=== PATIENT | female | born 1955 | race Hispanic/Latino ===

== ENCOUNTER 2017-07-19 18:24 | Emergency (ER) | payer OTHER ==
--- NOTE | 2017-07-19 19:55 | RAD REPORT ---
EXAM DESCRIPTION: RAD - Hand Right 3 View - 07/19/2017 7:45 pm CLINICAL HISTORY: Soft tissue amputation distal third digit COMPARISON: None. FINDINGS: There is amputation of the distal soft tissues of the third digit. No tuft fracture or def ormity seen. There is no retained foreign body. Elsewhere the hand shows no acute bone or soft tissue finding.
[2017-07-19] MEDS ORDERED: DOXYCYCLINE 100 MG CAP PO ONE (19:56)
[2017-07-19] MEDS ORDERED: HYDROCODONE/APAP 5/325 MG TAB ONE (19:56)
[2017-07-19] MEDS ORDERED: TETANUS & DIPHTHERIA TOX,ADULT 0.5 ML VIAL ONE (19:56)
--- NOTE | 2017-07-19 21:08 | ER ---
Nurse's Notes [facility] Name: Jessa Mock Age: 61 yrs Sex: Female : 1955 Arrival Date: 07/19/2017 Time: 18:28 Bed 8 Private MD: Out, [facility] Diagnosis: Deep avulsion of skin to right middle fingertip Presentation: 07/19 18:34 Presenting complaint: Patient states: Amputated tip of right 3rd digit 1 hour LICENSED MASSAGE THERAPIST. aj Bleeding controlled. Transition of care: patient was not received from another setting of care. Complicating Factors: There are no complicating factors for this patient. Onset of symptoms was July 19, 2017. Care prior to arrival: None. 18:34 Method Of Arrival: Ambulatory aj 18:34 Acuity: SHAUN 4 aj 21:15 Risk Assessment: Do you want to hurt yourself or someone else? Patient reports no ao desire to harm self or others. Initial Sepsis Screen: Does the patient meet any 2 criteria? No. Patient's initial sepsis screen is negative. Does the patient have a suspected source of infection? No. Patient's initial sepsis screen is negative. Triage Assessment: 18:35 General: Appears in no apparent distress. comfortable, Behavior is calm, cooperative, aj appropriate for age. Pain: Complains of pain in palmar aspect of distal phalanx of right middle finger and right middle fingernail. Neuro: Level of Consciousness is awake, alert, obeys commands, Oriented to person, place, time, situation, Appropriate for age. Respiratory: Airway is patent Respiratory effort is even, unlabored, Respiratory pattern is regular, symmetrical. Derm: Skin is intact, is healthy with good turgor, Skin is pink, warm \T\ dry. normal. Injury Description: Amputation sustained to dorsal aspect of distal phalanx of right middle finger and palmar aspect of distal phalanx of right middle finger is complete, was sustained 1-2 hours ago. Historical: - Allergies: 18:35 No Known Allergies; aj - Home Meds: 18:35 Metformin Oral [Active]; aspirin 81 mg Oral TbEC 1 tab once daily [Active]; aj - PMHx: 18:35 Hyperlipidemia; Hypertension; Diabetes - NIDDM; aj - Immunization history:: Last tetanus immunization: unknown. - Social history:: Smoking status: Patient/guardian denies using tobacco. - Ebola Screening: : Patient negative for fever greater than or equal to 101.5 degrees Fahrenheit, and additional compatible Ebola Virus Disease symptoms Patient denies exposure to infectious person Patient denies travel to an Ebola-affected area in the 21 days before illness onset. Screenin:00 Abuse screen: Denies threats or abuse. Denies injuries from another. Nutritional bp screening: No deficits noted. Tuberculosis screening: No symptoms or risk factors identified. Fall Risk None identified. Assessment: 19:00 General: Appears in no apparent distress. comfortable, Behavior is calm, cooperative, bp appropriate for age. Pain: Complains of pain in right middle finger. Neuro: Level of Consciousness is awake, alert, obeys commands, Oriented to person, place, time, situation, Appropriate for age. Cardiovascular: No deficits noted. Respiratory: Airway is patent Respiratory effort is even, unlabored, Respiratory pattern is regular, symmetrical. GI: No deficits noted. : No signs and/or symptoms were reported regarding the genitourinary system. EENT: No deficits noted. Derm: No deficits noted. Musculoskeletal: Circulation, motion, and sensation intact. Range of motion: intact in all extremities. Injury Description: Amputation sustained to palmar aspect of distal phalanx of right middle finger. 20:00 Reassessment: Patient appears in no apparent distress at this time. Patient and/or ao family updated on plan of care and expected duration. Pain level reassessed. Patient is alert, oriented x 3, equal unlabored respirations, skin warm/dry/pink. Bleeding controlled. 20:00 Reassessment: Patient DC home ambulatory. Patient understand the POC and to follow up ao with DR Raza. Provided with a work note for patient. 20:15 Injury Description: Laceration is bleeding profusely. ao Vital Signs: 18:35 BP 143 / 74; Pulse 59; Resp 20; Temp 97.3; Pulse Ox 100% on R/A; Weight 63.5 kg; Height aj 5 ft. 4 in. (162.56 cm); 19:18 BP 168 / 92; Pulse 69; Resp 18; Pulse Ox 100% on R/A; mt 20:51 BP 153 / 91; Pulse 64; Resp 18; Pulse Ox 99% on R/A; mt 18:35 Body Mass Index 24.03 (63.50 kg, 162.56 cm) aj ED Course: 18:28 Patient arrived in ED. sb2 18:28 Out, of [facility] is Private Physician. sb2 18:34 Triage completed. aj 18:35 Arm band placed on left wrist. Patient placed in an exam room. aj 19:00 Patient has correct armband on for positive identification. Bed in low position. Call bp light in reach. Side rails up X2. Adult w/ patient. 19:18 Devorah Cota FNP-C is PHCP. snw 19:18 Jose F Glover MD is Attending Physician. snw 19:18 Claudy Sampson, RN is Primary Nurse. bp 19:44 X-ray completed. Portable x-ray completed in exam room. Patient tolerated procedure kc2 well. 19:46 Hand Right 3 View XRAY In Process Unspecified. EDMS 20:03 Pernell Ray MD is Referral Physician. snw 21:14 No provider procedures requiring assistance completed. Patient did not have IV access ao during this emergency room visit. Administered Medications: 20:00 Drug: Barton 5 mg-325 mg 1 tabs Route: PO; ao 20:17 Follow up: Response: Pain is decreased bp 20:00 Drug: Doxycycline 100 mg Route: PO; ao 20:17 Follow up: Response: No adverse reaction bp 20:24 Drug: Tetanus-Diphtheria Toxoid Adult 0.5 ml {Mandarin Speaking Nanny: [place]. Exp: ao 09/29/2019. Lot #: [id number]. } Route: IM; Site: right deltoid; 21:19 Follow up: Response: No adverse reaction ao Outcome: 20:06 Discharge ordered by MD. snw 21:15 Discharged to home ambulatory. ao 21:15 Condition: stable 21:15 Discharge instructions given to patient, Instructed on discharge instructions, follow up and referral plans. Demonstrated understanding of instructions, follow-up care, medications, Prescriptions given X 2. 21:18 Patient left the ED. ao Signatures: Dispatcher [employer] Michell Patterson RN RN aj Therrien, Shelly, FNP-C FNP-Wilmer Billings RN RN Rebecca Valdez kc2 Fiorella Mcfarland ct Claudy Sampson RN RN Sydni Mark sb2
--- NOTE | 2017-07-19 21:08 | EDPHYS ---
Physician Documentation [facility] Name: Jessa Mock Age: 61 yrs Sex: Female : 1955 Arrival Date: 07/19/2017 Time: 18:28 Bed 8 Private MD: Out, [facility] ED Physician Jose F Glover HPI: 07/19 20:02 This 61 yrs old Female presents to ER via Ambulatory with complaints of snw Laceration. 20:02 Onset: The symptoms/episode began/occurred suddenly, just prior to arrival. The patient snw has not experienced similar symptoms in the past. It is unknown whether or not the patient has recently seen a physician. Pt at work and when trying to close heavy door pinched right tip of middle finger. Area avulsed. No X-ray evidence of exposed bone. Historical: - Allergies: 18:35 No Known Allergies; aj - Home Meds: 18:35 Metformin Oral [Active]; aspirin 81 mg Oral TbEC 1 tab once daily [Active]; aj - PMHx: 18:35 Hyperlipidemia; Hypertension; Diabetes - NIDDM; aj - Immunization history:: Last tetanus immunization: unknown. - Social history:: Smoking status: Patient/guardian denies using tobacco. - Ebola Screening: : Patient negative for fever greater than or equal to 101.5 degrees Fahrenheit, and additional compatible Ebola Virus Disease symptoms Patient denies exposure to infectious person Patient denies travel to an Ebola-affected area in the 21 days before illness onset. ROS: 20:01 Constitutional: Negative for fever, chills, and weight loss, Eyes: Negative for injury, snw pain, redness, and discharge, ENT: Negative for injury, pain, and discharge, Neck: Negative for injury, pain, and swelling, Cardiovascular: Negative for chest pain, palpitations, and edema, Respiratory: Negative for shortness of breath, cough, wheezing, and pleuritic chest pain, Abdomen/GI: Negative for abdominal pain, nausea, vomiting, diarrhea, and constipation, Back: Negative for injury and pain, : Negative for injury, bleeding, discharge, and swelling, Skin: Negative for injury, rash, and discoloration, Neuro: Negative for headache, weakness, numbness, tingling, and seizure. 20:01 MS/extremity: Positive for injury or acute deformity, cut tip of finger off with heavy door at work, bleeding controlled. Denies severe pain. Exam: 19:49 Constitutional: This is a well developed, well nourished patient who is awake, alert, snw and in no acute distress. Head/Face: Normocephalic, atraumatic. Eyes: Pupils equal round and reactive to light, extra-ocular motions intact. Lids and lashes normal. Conjunctiva and sclera are non-icteric and not injected. Cornea within normal limits. Periorbital areas with no swelling, redness, or edema. ENT: Nares patent. No nasal discharge, no septal abnormalities noted. Tympanic membranes are normal and external auditory canals are clear. Oropharynx with no redness, swelling, or masses, exudates, or evidence of obstruction, uvula midline. Mucous membranes moist. Neck: Trachea midline, no thyromegaly or masses palpated, and no cervical lymphadenopathy. Supple, full range of motion without nuchal rigidity, or vertebral point tenderness. No Meningismus. Chest/axilla: Normal chest wall appearance and motion. Nontender with no deformity. No lesions are appreciated. Cardiovascular: Regular rate and rhythm with a normal S1 and S2. No gallops, murmurs, or rubs. Normal PMI, no JVD. No pulse deficits. Respiratory: Lungs have equal breath sounds bilaterally, clear to auscultation and percussion. No rales, rhonchi or wheezes noted. No increased work of breathing, no retractions or nasal flaring. Abdomen/GI: Soft, non-tender, with normal bowel sounds. No distension or tympany. No guarding or rebound. No evidence of tenderness throughout. Back: No spinal tenderness. No costovertebral tenderness. Full range of motion. Skin: Warm, dry with normal turgor. Normal color with no rashes, no lesions, and no evidence of cellulitis. Neuro: Awake and alert, GCS 15, oriented to person, place, time, and situation. Cranial nerves II-XII grossly intact. Motor strength 5/5 in all extremities. Sensory grossly intact. Cerebellar exam normal. Normal gait. Psych: Awake, alert, with orientation to person, place and time. Behavior, mood, and affect are within normal limits. 19:49 Musculoskeletal/extremity: Extremities: grossly normal except: noted in the palmar aspect of distal phalanx of right middle finger: deep avulsion of tip of fat pad, Circulation is intact in all extremities. Sensation intact. Joints: All joints appear normal with full range of motion. Vital Signs: 18:35 BP 143 / 74; Pulse 59; Resp 20; Temp 97.3; Pulse Ox 100% on R/A; Weight 63.5 kg; Height aj 5 ft. 4 in. (162.56 cm); 19:18 BP 168 / 92; Pulse 69; Resp 18; Pulse Ox 100% on R/A; mt 20:51 BP 153 / 91; Pulse 64; Resp 18; Pulse Ox 99% on R/A; mt 18:35 Body Mass Index 24.03 (63.50 kg, 162.56 cm) aj MDM: 19:41 Patient medically screened. snw 20:14 Data reviewed: vital signs, nurses notes. Data interpreted: Pulse oximetry: on room air snw is 100 %. Interpretation: normal. Counseling: I had a detailed discussion with the patient and/or guardian regarding: the historical points, exam findings, and any diagnostic results supporting the discharge/admit diagnosis, the presence of at least one elevated blood pressure reading (>120/80) during this emergency department visit, radiology results, the need for outpatient follow up, to return to the emergency department if symptoms worsen or persist or if there are any questions or concerns that arise at home. Special discussion: I have referred the patient to see his PCP for further evaluation of high blood pressure. Based on the history and exam findings, there is no indication for further emergent testing or inpatient evaluation. I discussed with the patient/guardian the need to see the hand specialist for further evaluation of the symptoms. 07/19 19:23 Order name: Hand Right 3 View XRAY; Complete Time: 20:14 bp 07/19 19:48 Order name: [facility]. Order: surgicel/wound dressing; Complete Time: 19:51 snw Administered Medications: 20:00 Drug: Spencer 5 mg-325 mg 1 tabs Route: PO; ao 20:17 Follow up: Response: Pain is decreased bp 20:00 Drug: Doxycycline 100 mg Route: PO; ao 20:17 Follow up: Response: No adverse reaction bp 20:24 Drug: Tetanus-Diphtheria Toxoid Adult 0.5 ml {Roller Engraver: [place]. Exp: ao 09/29/2019. Lot #: [id number]. } Route: IM; Site: right deltoid; 21:19 Follow up: Response: No adverse reaction ao Disposition: 07/20 01:02 Co-signature as Attending Physician, Jose F Glover MD available for consultation at ps1 all times. . Disposition: 07/19/17 20:06 Discharged to Home. Impression: Deep avulsion of skin to right middle fingertip. - Condition is Stable. - Discharge Instructions: Fingertip Injuries and Amputations, Deep Skin Avulsion, VIS, Tetanus, Diphtheria (Td) - CDC. - Prescriptions for Tylenol- Codeine #3 300-30 mg Oral Tablet - take 2 tablets by ORAL route every 6 hours As needed; 15 tablet. Doxycycline Hyclate 100 mg Oral Tablet - take 1 tablet by ORAL route every 12 hours; 20 tablet. - Medication Reconciliation Form, Thank You Letter, Antibiotic Education, Prescription Opioid Use, Work release form, Family Work Release form. - Follow up: Pernell Ray MD; When: Tomorrow; Reason: Recheck today's complaints, Continuance of care, Re-evaluation by your physician. Signatures: Dispatcher [employer] Michell Patterson, RN RN Devorah Rowan, MOTORCYCLE FABRICATOR-C MOTORCYCLE FABRICATOR-Csnw Wilmer Jackson, RN RN Jose F Small MD MD ps1 Peltier, Brian RN bp Corrections: (The following items were deleted from the chart) 07/19 21:18 20:06 07/19/2017 20:06 Discharged to Home. Impression: Deep avulsion of skin to right ao middle fingertip. Condition is Stable. Forms are Medication Reconciliation Form, Thank You Letter, Antibiotic Education, Prescription Opioid Use. Follow up: Pernell Ray; When: Tomorrow; Reason: Recheck today's complaints, Continuance of care, Re-evaluation by your physician. snw
== END 2017-07-19 21:18 | disposition home or self-care (01) ==
LOC: ER 18:24
DX: S60.031A Contusion of right middle finger without damage to nail, initial encounter (principal); E11.9 Type 2 diabetes mellitus without complications; I10 Essential (primary) hypertension; W23.0XXA Caught, crushed, jammed, or pinched between moving objects, initial encounter; Y93.9 Activity, unspecified; Y92.9 Unspecified place or not applicable; Y99.0 Civilian activity done for income or pay; Z23 Encounter for immunization
CPT/HCPCS: 90714; 99283

== ENCOUNTER 2017-07-27 09:59 | Day surgery (SDC) | payer OTHER ==
[2017-07-27 10:26] LABS: Absolute Lymphocytes (CBC) 2.2 K/uL (0.7-4.9); Absolute Monocytes 0.6 K/uL (0.1-1.3); Absolute Neutrophil 3.2 K/uL (1.8-8.0); Basophils % 2.2 % (0-1.3); Hematocrit 38.5 % (36.0-45.0); Lymphocytes % 34.6 % (15.3-44.8); MCH 32.1 pg (27.0-35.0); MCV 94.4 fL (80-100); MPV 7.7 fL (7.6-11.3); Monocytes % 8.9 % (3.3-12.3); RBC Red Blood Cell Count 4.08 M/uL (3.86-4.86)
--- NOTE | 2017-07-27 10:35 | EKG ---
Test Date: 2017-07-27 Test Time: 10:13:30 Hospice Office Coordinator: EAGLE MEASUREMENT RESULTS: Intervals: Rate: 62 ID: [id number] QRSD: 70 QT: 416 QTc: 422 [place]: P: 13 ID: [id number] QRS: -3 T: 10 INTERPRETIVE STATEMENTS: Normal sinus rhythm Normal ECG No previous ECG available for comparison Electronically Signed On 07-27-17 10:34:33 CDT by Ld Collins
[2017-07-27 10:40] LABS: Potassium 3.8 mEq/L (3.6-5.0)
[2017-07-27] MEDS ORDERED: CLINDAMYCIN INJ 300 MG in NA CHLORIDE 0.9% 50 ML IV ONE (11:15)
[2017-07-27] MEDS ORDERED: NA CHLORIDE 0.9% 1,000 ML ONE (11:15)
--- NOTE | 2017-07-27 11:40 | RAD REPORT ---
EXAM DESCRIPTION: Regina Downing (2 Views)07/27/2017 11:34 am CLINICAL HISTORY: Preop for hand surgery COMPARISON: None FINDINGS: The lungs appear clear of acute infiltrate. The heart is normal size IMPRESSION: No acute abnormalities displayed
[2017-07-27] MEDS ORDERED: PROPOFOL 200 MG/20 ML VIAL IV ONE (13:24)
[2017-07-27] MEDS ORDERED: MIDAZOLAM HCL 2 MG/2 ML INJ ONE (13:25)
[2017-07-27] MEDS ORDERED: FENTANYL CITR 100 MCG/2 ML ONE (13:25)
[2017-07-27] MEDS ORDERED: EPHEDRINE SULF 50 MG/5 ML SYR ONE (13:43)
[2017-07-27] MEDS ORDERED: ONDANSETRON HCL 40 MG/20 ML VIAL ONE (13:59)
[2017-07-27] MEDS ORDERED: BUPIVACAINE 0.5% PF 10 ML VIAL ONE (14:02)
--- NOTE | 2017-07-27 22:26 | OP ---
Surgeon: Pernell Ray MD Lumber Inspector: Roshan. Preoperative Diagnosis: Tip amputation of the right middle finger. Postoperative Diagnosis: Tip amputation of the right middle finger. Procedure Performed: Debridement of skin, subcutaneous tissue, and bone; flap closure. Anesthesia: General. Procedure In Detail: After satisfactory induction of general anesthesia, the right arm was prepped w ith Betadine scrub, Betadine paint, dry sterile drapes applied in the usual manner. The arm was elev ated, exsanguinated with Esmarch, tourniquet was inflated to 250 mmHg. Hand placed on the [place] ta ble. A periosteal elevator was used to remove the nail plate. Then, the skin was incised with a sca lpel and freshened the edge. Bone was filed with a file, and the wound was jet lavaged and irrigated with 1 L of dilute Betadine solution. The right flap was outlined volarly, advanced dorsally, sewn in place with interrupted 4-0 Prolene simple sutures. Nail plate was replaced and dressed with Xerof orm, 2-inch Lawanda, and splint. The patient tolerated the procedure well and returned to Recovery. MUKESH/CADENCE Voice ID: [id number] Report ID: [id number]
== END 2017-07-27 15:31 | disposition home or self-care (01) ==
LOC: OR 09:59
PROVIDERS: ATTEND Specialist
PROC: 0HXFXZZ Transfer Right Hand Skin, External Approach (ICD-10-PCS; principal; 2017-07-27 11:45)
DX: S68.622A Partial traumatic transphalangeal amputation of right middle finger, initial encounter (principal); E11.9 Type 2 diabetes mellitus without complications; I10 Essential (primary) hypertension; Z88.0 Allergy status to penicillin
CPT/HCPCS: 36415; 71046; 80048; 82962; 85025; 88304; 88305; 93005; J2250; J2405; J3010; J7030